=== PATIENT | female | born 1960 | race Caucasian/White ===

== ENCOUNTER 2018-11-27 10:45 | Emergency (ER) | payer SELFPAY ==
--- NOTE | 2018-11-27 11:51 | ER Document Report ---
ED Medical Screen (RME) - General Chief Complaint: Dizziness Stated Complaint: DIZZY Time Seen by Provider: 11/27/18 11:41 Mode of Arrival: Ambulatory Information source: Patient Notes: Patient is a 58-year-old female with past medical history of hypertension, diabetes, hyperlipidemia and migraines who presents to the emergency department today with complaints of dizziness. She reports this is been ongoing for approximately 3-4 weeks with worsening this morning. Patient reports she was at work this morning when she became so dizzy she states she almost passed out. She does report a history of vertigo in the past so she did try taking meclizine over the last couple of weeks when she has been having these dizzy spells and she states that the meclizine did not help. Patient denies any numbness or tingling in any of her extremities and denies any unilateral weakness. Exam: GENERAL: Well-appearing, well-nourished and in no acute distress. HEAD: Atraumatic, normocephalic. EYES: Pupils equal round and reactive to light, extraocular movements intact, conjunctiva are normal. ENT: Moist mucous membranes. LUNGS: Breath sounds clear to auscultation bilaterally and equal. No wheezes rales or rhonchi. HEART: Regular rate and rhythm without murmurs Musculoskeletal: Normal range of motion, no pitting or edema. No cyanosis. NEUROLOGICAL: Cranial nerves grossly intact. Normal speech, normal gait. Normal sensory, motor exams PSYCH: Normal mood, normal affect. SKIN: Warm, Dry, normal turgor, no rashes or lesions noted. I have greeted and performed a rapid initial assessment of this patient. A comprehensive ED assessment and evaluation of the patient, analysis of test results and completion of the medical decision making process will be conducted by additional ED providers. Dictation of this chart was performed using voice recognition software; therefore, there may be some unintended grammatical errors. TRAVEL OUTSIDE OF THE [place] IN LAST 30 DAYS: No Physical Exam - Vital signs Vitals: Temp Pulse Resp BP Pulse Ox 98.0 F 57 L 14 146/58 H 96 11/27/18 11:14 11/27/18 11:14 11/27/18 11:14 11/27/18 11:14 11/27/18 11:14 Course - Vital Signs Vital signs: Temp Pulse Resp BP Pulse Ox 98.0 F 57 L 14 146/58 H 96 11/27/18 11:14 11/27/18 11:14 11/27/18 11:14 11/27/18 11:14 11/27/18 11:14
[2018-11-27 12:12] LABS: APPEARANCE,URINE CLEAR; BILIRUBIN,URINE NEGATIVE (NEGATIVE); COLOR,URINE STRAW; GLUCOSE, URINE >=500 mg/dL (NEGATIVE); KETONES,URINE NEGATIVE (NEGATIVE); LEUKOCYTE ESTERASE,URINE NEGATIVE (NEGATIVE); NITRITE,URINE NEGATIVE (NEGATIVE); PROTEIN,URINE NEGATIVE (NEGATIVE); URINE SPECIFIC GRAVITY 1.008; UROBILINOGEN,URINE NEGATIVE mg/dL (<2.0)
[2018-11-27 12:29] LABS: ABSOLUTE EOSINOPHILS # (AUTO) 0.8 10^3/uL (0.0-0.6); ABSOLUTE MONOCYTES (AUTO) 0.5 10^3/uL (0.1-1.4); ABSOLUTE NEUT (AUTO) 4.7 10^3/uL (1.7-8.2); BASOPHILS % (AUTO) 0.4 % (0-2); EOSINOPHILS % (AUTO) 9.7 % (0-6); HEMATOCRIT 39.7 % (36.0-47.0); HEMOGLOBIN 13.4 g/dL (12.0-15.5); LYMPHOCYTES % (AUTO) 24.9 % (13-45); MEAN CORPUSCULAR HEMOGLOBIN 28.9 pg (27.0-33.4); MEAN CORPUSCULAR HGB CONC 33.7 g/dL (32.0-36.0); MEAN CORPUSCULAR VOLUME 86 fl (80-97); MONOCYTES % (AUTO) 6.6 % (3-13); PLATELET COUNT 185 10^3/uL (150-450); RED BLOOD COUNT 4.63 10^6/uL (3.72-5.28); SEGMENTED NEUTROPHILS % (AUTO) 58.4 % (42-78); TOTAL CELLS COUNTED % (AUTO) 100 %; WHITE BLOOD COUNT 8.1 10^3/uL (4.0-10.5)
[2018-11-27 12:45] LABS: ALANINE AMINOTRANSFERASE 76 U/L (9-52); ALBUMIN 4.3 g/dL (3.5-5.0); ALKALINE PHOSPHATASE 117 U/L (38-126); ANION GAP 12 (5-19); ASPARTATE AMINO TRANSFERASE 60 U/L (14-36); BILIRUBIN,DIRECT 0.2 mg/dL (0.0-0.4); BILIRUBIN,TOTAL 0.5 mg/dL (0.2-1.3); BLOOD UREA NITROGEN 15 mg/dL (7-20); CARBON DIOXIDE 31 mmol/L (22-30); CHLORIDE 95 mmol/L (98-107); GLUCOSE 275 mg/dL (75-110); POTASSIUM 3.5 mmol/L (3.6-5.0); SODIUM 137.7 mmol/L (137-145); TOTAL PROTEIN 6.7 g/dL (6.3-8.2)
--- NOTE | 2018-11-27 12:52 | EKG REPORT ---
SEVERITY:- ABNORMAL ECG - SINUS RHYTHM ABNORMAL T, CONSIDER ISCHEMIA, INFERIOR LEADS : Confirmed by: Louis Oh MD 27-Nov-2018 12:51:22
--- NOTE | 2018-11-27 16:37 | ER Document Report ---
ED General - General Chief Complaint: Dizziness Stated Complaint: DIZZY Time Seen by Provider: 11/27/18 11:41 [facility] Provider: [facility] [Provider Group] - 11/28/18 Mode of Arrival: Ambulatory Information source: Patient Notes: This is a 58-year-old female with a history of hypertension, dyslipidemia and diabetes who presents to the emergency room with dizziness. She had an episode of nausea, feeling faint. Patient states she was at work when this episode occurred. Patient states she has had similar episodes to this in the past and has a workup from both neurology as well as ENT when she was in [place]. Currently, she states she is not really experiencing any vertigo. She does reach report a mild headache which was improved with medicines given. She is currently followed in [facility]. She denies any fever, chills, neck stiffness, photophobia. She denies any recent illnesses. TRAVEL OUTSIDE OF THE [place] IN LAST 30 DAYS: No - HPI Onset: Just prior to arrival Onset/Duration: Sudden Quality of pain: Dull Severity: Mild Pain Level: 1 Associated symptoms: denies: Chest pain, Fever, Shortness of breath Exacerbated by: Denies Relieved by: Denies Similar symptoms previously: Yes Recently seen / treated by doctor: No - Related Data Allergies/Adverse Reactions: No Known Allergies Allergy (Unverified 11/27/18 11:51) Past Medical History - General Information source: Patient - Social History Smoking Status: Never Smoker Cigarette use (# per day): No Chew tobacco use (# tins/day): No Frequency of alcohol use: None Drug Abuse: None Lives with: Family Family History: None Patient has suicidal ideation: No Patient has homicidal ideation: No - Past Medical History Cardiac Medical History: Reports: Hx Hypercholesterolemia, Hx Hypertension Neurological Medical History: Reports: Hx Migraine Endocrine Medical History: Reports: Hx Diabetes Mellitus Type 2 Renal/ Medical History: Denies: Hx Peritoneal Dialysis Musculoskeletal Medical History: Reports Hx Arthritis Past Surgical History: Reports: Hx Section - X3, Hx Cholecystectomy, Hx Orthopedic Surgery - R rotator cuff repair Review of Systems - Review of Systems Constitutional: denies: Chills, Fever EENT: No symptoms reported Cardiovascular: denies: Chest pain, Palpitations, Heart racing Respiratory: denies: Cough, Short of breath Gastrointestinal: denies: Abdomen distended, Abdominal pain, Diarrhea, Nausea Genitourinary: No symptoms reported Female Genitourinary: No symptoms reported Musculoskeletal: No symptoms reported Skin: No symptoms reported Hematologic/Lymphatic: No symptoms reported Neurological/Psychological: See HPI Physical Exam - Vital signs Vitals: Temp Pulse Resp BP Pulse Ox 98.0 F 57 L 14 146/58 H 96 11/27/18 11:14 11/27/18 11:14 11/27/18 11:14 11/27/18 11:14 11/27/18 11:14 Notes: Physical exam: GENERAL: This is a 58-year-old female, alert and oriented x3, no acute distress. HEAD: Atraumatic, normocephalic. EYES: Pupils equal round and reactive to light, extraocular movements intact, sclera anicteric, conjunctiva are normal. ENT: TMs normal, nares patent, oropharynx clear without exudates. Moist mucous membranes. NECK: Normal range of motion, supple without obvious mass or JVD. LUNGS: Breath sounds clear to auscultation bilaterally and equal. No wheezes rales or rhonchi. HEART: Regular rate and rhythm without murmurs, rubs or gallops. ABDOMEN: Soft, normoactive bowel sounds. No tenderness to palpation. No guarding, no rebound. No masses appreciated. EXTREMITIES: Normal range of motion, no pitting or edema. No clubbing or cyanosis. NEUROLOGICAL: Cranial nerves II through XII grossly intact. Visual white are intact, motor is 5/5, sensory grossly intact, cerebellar (finger to nose) is good, Romberg negative. Patient's gait is normal. Sammi Hallpike is not had any vertigo. PSYCH: Normal mood, normal affect. SKIN: Warm, Dry, normal turgor, no rashes or lesions noted. Course - Re-evaluation Re-evalutation: 11/27/18 20:58 Note: I had a long conversation with the patient her neurologic exam is quite good. [place]-Hallpike maneuver did not elicit any vertigo. I think she most likely has a migraine. We did talk about further imaging (i.e. CT of the head) but she is adamantly against it as she is concerned about the hospital course. I have advised her to follow-up with [facility] so that she can get follow-up with a neurologist. I have given her a copy of today's lab test. Her sugar was elevated and she will try and work more on her diet. - Vital Signs Vital signs: Temp Pulse Resp BP Pulse Ox 98.0 F 57 L 18 131/60 H 98 11/27/18 11:14 11/27/18 11:14 11/27/18 16:15 11/27/18 14:01 11/27/18 15:00 - Laboratory Result Diagrams: 11/27/18 12:05 11/27/18 12:05 Laboratory results interpreted by me: 11/27/18 11/27/18 11/27/18 11:22 12:05 12:05 Eosinophils % 9.7 H Absolute Eosinophils 0.8 H Potassium 3.5 L Chloride 95 L Carbon Dioxide 31 H Glucose 275 H AST 60 H ALT 76 H Urine Glucose (UA) >=500 H - EKG Interpretation by Me Rhythm: NSR - EKG shows a sinus rhythm with a ventricular rate of 57, there is no acute ST elevations or depressions. There is no old EKG to compare. Discharge - Discharge Clinical Impression: Migraine headache Condition: Stable Disposition: HOME, SELF-CARE Additional Instructions: As we discussed, your neurologic exam look quite good today. I do think your symptoms are most likely related to migraine. I want you to continue with the topiramate and the naproxen (I wrote prescr iptions for both). Your sugar was 275 which is elevated today. I want you to follow-up with the [facility] because they may want to add to the metformin that you are already on. Rest, drink plenty of fluids. Return to the emergency room for worsening headache, chest pain or palpitations, fainting or any concerns or getting worse. Prescriptions: Naproxen [EC-Naprosyn] 500 mg PO BID PRN #30 tablet.dr GARCIA Reason: Topiramate [Qudexy Xr] 75 mg PO DAILY #45 cap.spr.24 Forms: Return to Work Referrals: [facility] [Provider Group] - 11/28/18
[2018-11-27 16:48] VITALS: BP 131/60
== END 2018-11-27 16:58 | disposition home or self-care (01) ==
LOC: ER 10:45
DX: G43.909 Migraine, unspecified, not intractable, without status migrainosus (principal); R42 Dizziness and giddiness; R11.0 Nausea; I10 Essential (primary) hypertension; E11.9 Type 2 diabetes mellitus without complications; E78.00 Pure hypercholesterolemia, unspecified
CPT/HCPCS: 36415; 80053; 81001; 84484; 85025; 93005; 93010; 99284

== ENCOUNTER 2020-02-22 08:03 | Day surgery (SDC) | payer BC ==
[~2020-02-22 08:03] MED LIST: CHONDR SU A NA/HYALUR INTRAOC KIT (SURGICARE) ONE; EPINEPHRINE INJ/PF 1 MG/1 ML AMPULE ONE; KETOROLAC TROMETHAMINE 0.45% 4 DROP/0.4 ML DROPERETTE OD PRN; LIDOCAINE 1%/PHENYLEPHRINE 1.5% 1 ML VIAL ONE
[2020-02-22] MEDS: TETRACAINE HCL 0.5% OPH SOLN 4 ML OD PRN ×3 (08:44→09:14)
[2020-02-22] MEDS: TROPICAMIDE 1% OPH SOLN 15 ML OD PRN ×3 (08:44→09:05)
[2020-02-22] MEDS: BESIFLOXACIN HCL 0.6% OPH SUSP 5 ML BOTTLE OD PRN ×4 (08:45→09:31)
[2020-02-22] MEDS: CYCLOPENTOLATE 0.2%/PHENYLEPHRINE 1% OPH SOLN 2 ML OD PRN ×3 (08:45→09:05)
[2020-02-22] MEDS ORDERED: MIDAZOLAM 2 MG/2 ML INJ ONE (08:54)
[2020-02-22] MEDS ORDERED: FENTANYL CITRATE INJ/PF 100 MCG/2 ML AMPUL ONE (09:10)
[2020-02-22] MEDS ORDERED: ONDANSETRON HCL INJ/PF 4 MG/2 ML SDV ONE (09:10)
[2020-02-22] MEDS: DORZOLAMIDE HCL 2%/TIMOLOL MALEAT 0.5% OPH SOLN 10 ML OD PRN ×2 (09:31)
--- NOTE | 2020-02-22 10:19 | Operative Report ---
Operative Report-[facility] Operative Report: DATE OF SURGERY: February 22, 2020 PREOPERATIVE DIAGNOSIS: NUCLEAR CATARACT, RIGHT EYE. POSTOPERATIVE DIAGNOSIS: NUCLEAR CATARACT, RIGHT EYE. PROCEDURE PERFORMED: PHACOEMULSIFICATION WITH POSTERIOR CHAMBER INTRAOCULAR LENS IMPLANT, RIGHT EYE. SURGEON: Javad Torres DO MEDICATIONS AND ANESTHESIA: Versed: IV Versed Tetracaine drops: 1 to 2 drops given as needed COMPLICATION: None INDICATIONS FOR SURGERY: Medical necessity: Best corrected visual acuity worse than 20/40 secondary to cataracts with impairment of ability to carry out needs or desired activities, blurred vision, visual distortion, reduced contrast sensitivity and/or glare with association functional impairment and supporting documentation/testing, and cataracts causing symptomatic impairment of visual functions not corrected with tolerable changes in glasses or contact lenses interfering with activities of daily life. PROCEDURE: Consent: The risks, benefits and alternatives of this procedures was discussed with the patient. The patient read and signed the consent forms, was identified and was seated in the exam chair. IOL: MX 60 E 25.0 IOL Diopters: Phacoemulsification with posterior chamber intraocular lens implant: The face was prepped with 5% povidone iodine solution, and a few drops of 5% povidone iodine solution was instilled into the inferior fornix. A non-fenestrated drape was placed over the eye and the lids were parted with the speculum. A paracentesis was made with a 15 degree blade, and 1% lidocaine MPF followed by viscoelastic was injected into the anterior chamber. A 2.4 mm metal micro- keratome was used to create a temporal clear corneal incision. A circular anterior capsulorrhexis was created, followed by hydro-dissection and hydro- delineation. The phacoemulsification hand piece was inserted and the nucleus was removed with the Phaco chop technique. The irrigation-aspiration hand piece was used to remove the residual cortex, and vacuum the posterior capsule. The capsular bag was inflated and viscoelastic and the above-mentioned IOL was injected into the eye with care to insert both leaning and trailing haptics in the capsular bag. The irrigation/aspiration hand piece was reinserted to remove residual viscoelastic from the capsular bag and anterior chamber. The corneal incision was hydrated, and anterior chamber was inflated with sterile BSS via the paracentesis site, and found to be watertight. Postop medication: 1 drop of prednisolone into operative by followed by 1 drop of Cosopt into operative eye followed by 1 drop of Besivance intraoperative by other:
== END 2020-02-22 10:03 | disposition home or self-care (01) ==
LOC: SC 08:03
PROVIDERS: ATTEND Ophthalmology
DX: H25.11 Age-related nuclear cataract, right eye (principal); E11.9 Type 2 diabetes mellitus without complications; I10 Essential (primary) hypertension; E78.00 Pure hypercholesterolemia, unspecified; Z79.84 Long term (current) use of oral hypoglycemic drugs; Z79.82 Long term (current) use of aspirin; Z79.4 Long term (current) use of insulin; I49.9 Cardiac arrhythmia, unspecified
CPT/HCPCS: 66984; 82962; V2632; J2250; J3490 ×2; J0171; J3010; J2405; 142

== ENCOUNTER 2020-04-02 11:51 | Day surgery (SDC) | payer BC ==
[~2020-04-02 11:51] MED LIST changes: +DORZOLAMIDE HCL 2%/TIMOLOL MALEAT 0.5% OPH SOLN 10 ML OS PRN; -KETOROLAC TROMETHAMINE 0.45% 4 DROP/0.4 ML DROPERETTE OD PRN; +KETOROLAC TROMETHAMINE 0.45% 4 DROP/0.4 ML DROPERETTE OS PRN; +LIDOCAINE 1%/PHENYLEPHRINE 1.5% 0.8 ML SYRINGE ONE; -LIDOCAINE 1%/PHENYLEPHRINE 1.5% 1 ML VIAL ONE
[2020-04-02] MEDS: CYCLOPENTOLATE 0.2%/PHENYLEPHRINE 1% OPH SOLN 2 ML OS PRN ×3 (12:13→12:33)
[2020-04-02] MEDS: TROPICAMIDE 1% OPH SOLN 15 ML OS PRN ×3 (12:13→12:33)
[2020-04-02] MEDS: BESIFLOXACIN HCL 0.6% OPH SUSP 5 ML BOTTLE OS PRN ×3 (12:13→13:04)
[2020-04-02] MEDS: TETRACAINE HCL 0.5% OPH SOLN 4 ML OS PRN ×3 (12:14→12:48)
[2020-04-02] MEDS ORDERED: MIDAZOLAM 2 MG/2 ML INJ ONE (12:31)
--- NOTE | 2020-04-02 13:57 | Operative Report ---
Operative Report-[facility] Operative Report: DATE OF SURGERY: April 02, 2020 PREOPERATIVE DIAGNOSIS: NUCLEAR CATARACT, LEFT EYE. POSTOPERATIVE DIAGNOSIS: NUCLEAR CATARACT, LEFT EYE. PROCEDURE PERFORMED: PHACOEMULSIFICATION WITH POSTERIOR CHAMBER INTRAOCULAR LENS IMPLANT, LEFT EYE. SURGEON: Javad Torres DO MEDICATIONS AND ANESTHESIA: Versed: IV Versed Tetracaine drops: 1 to 2 drops given as needed COMPLICATION: None INDICATIONS FOR SURGERY: Medical necessity: Best corrected visual acuity worse than 20/40 secondary to cataracts with impairment of ability to carry out needs or desired activities, blurred vision, visual distortion, reduced contrast sensitivity and/or glare with association functional impairment and supporting documentation/testing, and cataracts causing symptomatic impairment of visual functions not corrected with tolerable changes in glasses or contact lenses interfering with activities of daily life. PROCEDURE: Consent: The risks, benefits and alternatives of this procedures was discussed with the patient. The patient read and signed the consent forms, was identified and was seated in the exam chair. IOL: MX 60 E 24.5 IOL Diopters: Phacoemulsification with posterior chamber intraocular lens implant: The face was prepped with 5% povidone iodine solution, and a few drops of 5% povidone iodine solution was instilled into the inferior fornix. A non-fenestrated drape was placed over the eye and the lids were parted with the speculum. A paracentesis was made with a 15 degree blade, and 1% lidocaine MPF followed by viscoelastic was injected into the anterior chamber. A 2.4 mm metal micro- keratome was used to create a temporal clear corneal incision. A circular anterior capsulorrhexis was created, followed by hydro-dissection and hydro- delineation. The phacoemulsification hand piece was inserted and the nucleus was removed with the Phaco chop technique. The irrigation-aspiration hand piece was used to remove the residual cortex, and vacuum the posterior capsule. The capsular bag was inflated and viscoelastic and the above-mentioned IOL was injected into the eye with care to insert both leaning and trailing haptics in the capsular bag. The irrigation/aspiration hand piece was reinserted to remove residual viscoelastic from the capsular bag and anterior chamber. The corneal incision was hydrated, and anterior chamber was inflated with sterile BSS via the paracentesis site, and found to be watertight. Postop medication:1 drop of prednisolone into operative by followed by 1 drop of Cosopt into operative eye followed by 1 drop of Besivance intraoperative by Other:
== END 2020-04-02 13:36 | disposition home or self-care (01) ==
LOC: SC 11:51
PROVIDERS: ATTEND Ophthalmology
DX: H25.12 Age-related nuclear cataract, left eye (principal); Z98.41 Cataract extraction status, right eye; E11.9 Type 2 diabetes mellitus without complications; I10 Essential (primary) hypertension; E78.00 Pure hypercholesterolemia, unspecified; Z79.82 Long term (current) use of aspirin; Z79.84 Long term (current) use of oral hypoglycemic drugs; Z79.899 Other long term (current) drug therapy
CPT/HCPCS: 66984; V2632; J2250; J3490 ×3; J0171; 142